=== PATIENT | female | born 1955 | race Caucasian/White ===

== ENCOUNTER 2022-08-16 13:53 | Emergency (ER) | payer SELFPAY ==
[~2022-08-16] VITALS: Ht 152.4 cm; Wt 118.2 kg
[~2022-08-16 13:53] MED LIST: ASPIRIN 81M81 MG/TA2 PO; CANA100T PO; GLUCOPHAGE1000 MG PO; LEXAPRO20 MG PO; PRINIVIL20 MG PO; PRISTIQ25 MG PO; TOPROL XL100 MG PO; TRULICITY1.5 MG/0.5 SQ
[2022-08-16 14:02] VITALS: TEMP 99.2
[2022-08-16 15:59] LABS: COLLECTION METHOD CLEAN CATCH
[2022-08-16 16:02] LABS: BASO % 0.2 % (0.0-2.0); EOS % 0.2 % (0.0-4.0); GRAN # 3.3 K/mm3 (1.4-6.5); GRAN % 65.9 % (42.2-75.2); HEMOGLOBIN 11.4 g/dl (12.5-16.0); LYMPH # 1.2 K/mm3 (1.2-3.4); LYMPH % 24.2 % (20.0-51.0); MEAN CELL VOLUME 89 fl (80.0-100.0); MEAN CORPUSCULAR HEMOGLOBIN 30 pg (27-31); MEAN CORPUSCULAR HGB CONC 34 g/dl (33.0-37.0); MEAN PLATELET VOLUME 9.9 fl (7.4-10.4); MONO # 0.4 K/mm3 (0.1-0.6); MONO % 8.7 % (1.7-9.3); PLATELET COUNT 177 K/mm3 (130-400); RED BLOOD COUNT 3.77 M/mm3 (4.10-5.30); REDCELL DISTRIBUTION WIDTH-CV 13.3 % (11.5-14.5)
[2022-08-16 16:05] LABS: HEMATOCRIT 33.4 % (37.0-47.0)
[2022-08-16 16:07] LABS: URINE APPEARANCE Clear (CLEAR/HAZY); URINE COLOR Yellow (YELLOW)
[2022-08-16 16:08] LABS: PH 5.5 (5.0-8.5); URINE BLOOD Negative (NEGATIVE); URINE GLUCOSE 3+ (NEGATIVE); URINE KETONE 1+ (NEGATIVE); URINE NITRATE Negative (NEGATIVE); URINE PROTEIN(semi-quant) Negative (NEGATIVE); URINE UROBILINOGEN 0.2 E.U/dL (0.2-1.0)
[2022-08-16 16:10] LABS: SQUAMOUS EPITHELIAL None Seen /hpf (0-10); URINE BACTERIA None Seen /hpf (NONE SEEN); URINE RBC 0-2 /hpf (0-2)
[2022-08-16 16:19] LABS: ALBUMIN 3.6 gm/dL (3.4-4.8); BILIRUBIN,TOTAL 0.6 mg/dL (0.2-1.2); CALCIUM 9.1 mg/dL (8.4-10.2); CREATININE, serum 1.23 mg/dL (0.57-1.11); POTASSIUM 3.7 mmol/L (3.5-4.5); TOTAL PROTEIN 6.7 gm/dL (6.2-8.1)
[2022-08-16] MEDS ORDERED: ZOFRAN ODT4 MG PO (18:22)
[2022-08-16] MEDS ORDERED: AMOXICILLIN 8751 TAB PO (18:22)
[2022-08-16 18:44] VITALS: BP 142/80; PULSE 66
== END 2022-08-16 18:45 | disposition home or self-care (01) ==
LOC: COL.ER 13:53
PROVIDERS: Emergency Medicine
DX: K57.92 Diverticulitis of intestine, part unspecified, without perforation or abscess without bleeding (principal); R94.4 Abnormal results of kidney function studies; R73.9 Hyperglycemia, unspecified; Z90.49 Acquired absence of other specified parts of digestive tract
CPT/HCPCS: J2405; J3010; J7120; Q9967

== ENCOUNTER 2024-02-08 06:40 | Day surgery (SDC) | payer MEDICARE ==
[~2024-02-08] VITALS: Ht 152.4 cm; Wt 115.3 kg
[~2024-02-08 06:40] MED LIST changes: +AMOXICILLIN 8751 TAB PO; +LR 1,000 ML IV SCH; +NORCO 325 MG-51 TAB PO; +NORFLEX 10100 MG/TAB PO; +Ondansetron 4 MG/2 ML VIAL IV PRN; +ZOFRAN ODT4 MG PO
[2024-02-08] MEDS ORDERED: ASPIRIN 81M81 MG/TA2 PO (07:47)
[2024-02-08] MEDS ORDERED: PRISTIQ100 MG PO (07:49)
[2024-02-08] MEDS ORDERED: CARDIZEM CD360 MG PO (07:50)
[2024-02-08] MEDS ORDERED: ZETIA 10MG TAB10 MG PO (07:50)
[2024-02-08] MEDS ORDERED: HCTZ 25MG TAB25 MG PO (07:50)
[2024-02-08] MEDS ORDERED: BASAGLAR K100 UNIT/1 SQ (07:51)
[2024-02-08] MEDS ORDERED: JARDIANCE25 (07:52)
[2024-02-08] MEDS ORDERED: PRINIVIL20 MG PO (07:53)
[2024-02-08] MEDS ORDERED: GLUCOPHAGE500 MG/TAB PO (07:53)
[2024-02-08] MEDS ORDERED: MOUNJARO5 MG/0.5 M SQ (07:54)
[2024-02-08] MEDS ORDERED: KAPSPARGO SPRIN50 MG PO (07:54)
[2024-02-08] MEDS ORDERED: fentaNYL 50 MCG/ML 2 ML VIAL ONE (07:54)
[2024-02-08] MEDS ORDERED: Lidocaine PF 2% (20 MG/ML) 5 ML VIAL ONE (07:54)
[2024-02-08] MEDS ORDERED: PRIL40 PO (07:55)
[2024-02-08] MEDS ORDERED: VIIBRYD40 MG PO (07:55)
[2024-02-08] MEDS ORDERED: VITAMIN D250 MCG PO (07:56)
[2024-02-08 08:05] VITALS: BP 157/88; PULSE 77; TEMP 97
[2024-02-08 09:35] VITALS: BP 131/86; PULSE 67
[2024-02-08 09:50] VITALS: BP 137/85; PULSE 65
--- NOTE | 2024-02-08 10:14 | NUR ---
0935: PT ARRIVES BACK TO BAY 1 FROM ENDO PROCEDURE. AMBULATED TO CHAIR WITH RN ASSIST. MONITORS ON AND ALARMS SET. NO COMPLAINTS OF NAUSEA OR PAIN. REQUESTING WATER AND CRACKERS. 0950: PT TOLERATING WATER AND FOOD WELL. 1000: IV DISCONTINUED. DISCHARGE EDUCATION DONE. PT STATES SHE HAS NO QUESTIONS AT THIS TIME. 1010: PT TRANSFERRED OUT OF HOSPITAL VIA WHEELCHAIR TO PRIVATE VEHICLE DRIVEN BY FAMILY MEMBER.
== END 2024-02-08 10:10 | disposition home or self-care (01) ==
LOC: SDCO 06:40
DX: K21.00 Gastro-esophageal reflux disease with esophagitis, without bleeding (principal); K22.4 Dyskinesia of esophagus; K29.30 Chronic superficial gastritis without bleeding; Z12.11 Encounter for screening for malignant neoplasm of colon; D12.2 Benign neoplasm of ascending colon; K57.30 Diverticulosis of large intestine without perforation or abscess without bleeding; E11.9 Type 2 diabetes mellitus without complications; Z79.85 Long-term (current) use of injectable non-insulin antidiabetic drugs; Z79.4 Long term (current) use of insulin; Z79.84 Long term (current) use of oral hypoglycemic drugs; Z98.0 Intestinal bypass and anastomosis status; Z79.82 Long term (current) use of aspirin; Z90.49 Acquired absence of other specified parts of digestive tract; Z79.899 Other long term (current) drug therapy; Z79.01 Long term (current) use of anticoagulants; Z95.818 Presence of other cardiac implants and grafts; Z95.811 Presence of heart assist device
CPT/HCPCS: C1726; J2704; J3010